=== PATIENT | female | born 1995 | race Caucasian/White ===

== ENCOUNTER 2021-01-14 08:19 | Inpatient (IN) ==
[2021-01-14] MEDS ORDERED: MEPERIDINE 50 MG/1 ML VIAL IV PRN (08:33)
[2021-01-14] MEDS ORDERED: BUTORPHANOL 2 MG/ML VIAL IV PRN (08:33)
[2021-01-14] MEDS ORDERED: ONDANSETRON 4 MG/2 ML VIAL IV PRN ×2 (08:33→17:56)
[2021-01-14] MEDS ORDERED: FAMOTIDINE 20 MG/2 ML VIAL IV ONE (08:37)
[2021-01-14] MEDS ORDERED: hydrOXYzine HCL 25 MG/1 ML VIAL IM PRN (08:37)
[2021-01-14] MEDS ORDERED: diphenhydrAMINE 50 MG/1 ML VIAL IV PRN ×2 (08:37)
[2021-01-14] MEDS ORDERED: NALOXONE 0.4 MG/ML VIAL IV PRN (08:37)
[2021-01-14] MEDS ORDERED: CITRIC ACID/SODIUM CITRATE 30 ML UDCUP PO ONE (08:37)
[2021-01-14] MEDS ORDERED: LACTATED RINGERS 1,000 ML IV ONE (08:37)
[2021-01-14] MEDS ORDERED: PROMETHAZINE 25 MG/1 ML VIAL IM ONE (08:37)
[2021-01-14] MEDS ORDERED: ePHEDrine 50 MG/ML VIAL IV PRN (08:37)
[2021-01-14] MEDS: LACTATED RINGERS 1,000 ML IV SCH ×2 (08:40→10:14)
[2021-01-14 08:58] LABS: Basophils % 0.3 % (0.0-0.8); Eosinophils # 0.1 10*3/uL (0.0-0.87); Eosinophils % 0.7 % (0.00-10.9); Hematocrit 35.4 VOL% (35.7-47.0); Hemoglobin 11.3 GM/DL (12.0-16.0); Immature Granulocytes % 0.8 %; Immature Granulocytes Absolute 0.08 #; Lymphocytes # 2.4 10*3/uL (1.4-4.0); Lymphocytes % 22.9 % (21.3-54.2); Mean Corpuscular HGB Conc 31.9 GM/DL (32-36); Mean Corpuscular Volume 84.9 FL (87-102); Monocytes % 6.8 % (1.7-12.7); Neutrophils % 68.5 % (38.7-73.9); Platelet Count 334 T/CUMM (130-400); Red Blood Count 4.17 MC/CUMM (3.8-5.5); Red Cell Distribution Width 13.3 % (9.3-17.3); White Blood Count 10.5 T/CUMM (4-12)
[2021-01-14] MEDS ORDERED: fentaNYL 2 MCG/ROPIV 0.2% EPID 100 ML EPIDURAL SCH (09:00)
[2021-01-14 09:36] LABS: Alanine Aminotransferase 51 U/L (13-56); Albumin 3.1 G/DL (3.4-5.0); Alkaline Phosphatase 185 U/L (45-117); Aspartate Amino Transferase 33 U/L (0-37); Bilirubin,Total < 0.39 MG/DL (0.20-1.00); Blood Urea Nitrogen 5 MG/DL (7-18); Calcium 9.1 MG/DL (8.5-10.1); Carbon Dioxide 23 MMOL/L (21-32); Estimated Glom Filtration Rate 138 ML/MIN; Glucose 77 MG/DL (74-106); Potassium 3.6 MMOL/L (3.5-5.1); Sodium 136 MMOL/L (136-145)
[2021-01-14 10:19] LABS: Barbiturates Screen,Urine Negative (Negative); Benzodiazepines Screen,Urine Negative (Negative); Cannabinoid Screen,Urine Negative (Negative); Opiate Screen,Urine Negative (Negative); Phencyclidine Screen,Urine Negative (Negative)
[2021-01-14 10:57] LABS: Bilirubin,Urine Negative (Negative); Blood, Urine Negative (Negative); Glucose,Urine (UA) Negative (Negative); Ketones,Urine Negative (Negative); Mucus,Urine Occasional /LPF (Occasional); Nitrite,Urine Negative (Negative); Protein,Urine Negative; RBC,Urine <1 /HPF (0-4); Squamous Epithelial Cell,Urine Occasional /HPF (0-10); Urine Appearance CLEAR (Clear); Urine Color Yellow (Yellow); Urine Specific Gravity 1.005 (1.001-1.035); Urine Urobilinogen < 2.0 EU/DL (0.2-1.0)
[2021-01-14] MEDS: OXYTOCIN/LR 20 UNIT/1,000 ML BAG IV SCH ×2 (12:29→16:50)
[2021-01-14] MEDS ORDERED: miSOPROStoL 200 MCG TABLET ONE (12:38)
[2021-01-14] MEDS ORDERED: METHYLERGONOVINE 0.2 MG/1 ML AMP ONE (12:39)
[2021-01-14] MEDS ORDERED: OXYTOCIN 10 UNIT/ML VIAL ONE (12:40)
[2021-01-14 13:41] LABS: Cord Venous Blood HCO3 22.2 MMOL/L; Cord Venous Blood PCO2 37.7 MMHG; Cord Venous Blood PO2 29.4
[2021-01-14] MEDS ORDERED: BENZOCAINE 20%/MENTHOL 0.5% SPRAY 56 GM CAN TOP PRN (17:56)
[2021-01-14] MEDS ORDERED: WITCH HAZEL PADS 100/JAR TOP PRN (17:56)
[2021-01-14] MEDS ORDERED: MEASLES/MUMPS/RUBELLA VACCINE 0.5 ML VIAL SUBCUT ONE (17:56)
[2021-01-14] MEDS ORDERED: LANOLIN 50% CREAM 0.3 OZ TUBE TOP PRN (17:56)
[2021-01-14] MEDS ORDERED: RHO(D) IMMUNE GLOBULIN 300 MCG SYRINGE IM ONE (17:56)
[2021-01-14] MEDS ORDERED: ACETAMINOPHEN 325 MG TABLET PO PRN (17:56)
[2021-01-14] MEDS ORDERED: DIPH/TET/ACEL PERT BOOSTER VACCINE 0.5 ML VIAL IM ONE (17:56)
[2021-01-14] MEDS ORDERED: oxyCODONE/ACETAMINOPHEN 5-325 MG TABLET PO PRN ×2 (17:56)
[2021-01-14] MEDS ORDERED: BISACODYL 10 MG SUPP RECTAL PRN (17:56)
[2021-01-14] MEDS ORDERED: HYDROCORTISONE 2.5% RECTAL CREAM 30 GM TUBE TOP PRN (17:56)
[2021-01-14] MEDS: IBUPROFEN 800 MG TABLET PO PRN (18:11)
[2021-01-14] MEDS: DOCUSATE SODIUM 100 MG CAPSULE PO SCH (22:12)
[2021-01-14] MEDS: buPROPion XL 150 MG TABLET PO SCH (22:13)
[2021-01-15] MEDS: IBUPROFEN 800 MG TABLET PO PRN (01:26)
[2021-01-15 05:18] LABS: Basophils % 0.3 % (0.0-0.8); Eosinophils # 0.1 10*3/uL (0.0-0.87); Eosinophils % 0.5 % (0.00-10.9); Hematocrit 31.1 VOL% (35.7-47.0); Immature Granulocytes % 0.6 %; Immature Granulocytes Absolute 0.07 #; Lymphocytes # 2.6 10*3/uL (1.4-4.0); Lymphocytes % 22.5 % (21.3-54.2); Mean Corpuscular HGB Conc 32.2 GM/DL (32-36); Mean Platelet Volume 9.9 FL (9.6-12.0); Monocytes % 7.6 % (1.7-12.7); Neutrophils % 68.5 % (38.7-73.9); Platelet Count 286 T/CUMM (130-400); Red Blood Count 3.66 MC/CUMM (3.8-5.5); Red Cell Distribution Width 13.2 % (9.3-17.3); White Blood Count 11.4 T/CUMM (4-12)
[2021-01-15] MEDS: DOCUSATE SODIUM 100 MG CAPSULE PO SCH ×3 (08:21→21:10)
[2021-01-15] MEDS: buPROPion XL 150 MG TABLET PO SCH (08:22)
[2021-01-16] MEDS: IBUPROFEN 800 MG TABLET PO PRN (00:49)
[2021-01-16] MEDS: DOCUSATE SODIUM 100 MG CAPSULE PO SCH (09:14)
[2021-01-16] MEDS: buPROPion XL 150 MG TABLET PO SCH (09:14)
[2021-01-16 12:28] VITALS: BP 143/75
== END 2021-01-16 15:00 | disposition home or self-care (01) | DRG 560 ==
LOC: N.LDOUT 08:19 → N.LD 08:20 → N.OB 17:55
PROVIDERS: ADMIT Obstetrics & Gynecology; ATTEND Specialist

== ENCOUNTER 2022-01-13 22:59 | Inpatient (IN) ==
[2022-01-13 23:38] LABS: Bacteria,Urine Occasional /HPF (Few); Mucus,Urine Occasional /LPF (Occasional); RBC,Urine 2 /HPF (0-4); Squamous Epithelial Cell,Urine Few /HPF (0-10); Urine Appearance Clear (Clear); Urine Color Yellow (Yellow)
[2022-01-13 23:39] LABS: Bilirubin,Urine Negative (Negative); Blood, Urine Trace mg/dL (Negative); Glucose,Urine (UA) Negative (Negative); Ketones,Urine Negative (Negative); Nitrite,Urine Negative (Negative); Protein,Urine Negative (Negative)
[2022-01-14] MEDS ORDERED: miSOPROStoL 200 MCG TABLET RECTAL PRN (00:48)
[2022-01-14] MEDS ORDERED: MEPERIDINE 50 MG/1 ML VIAL IV PRN (00:48)
[2022-01-14] MEDS ORDERED: BUTORPHANOL 1 MG/ML VIAL IV PRN (00:48)
[2022-01-14] MEDS ORDERED: FAMOTIDINE 20 MG TABLET PO PRN (00:48)
[2022-01-14] MEDS ORDERED: ACETAMINOPHEN 500 MG TABLET PO PRN (00:48)
[2022-01-14] MEDS ORDERED: METHYLERGONOVINE 0.2 MG/1 ML AMP IM PRN (00:48)
[2022-01-14] MEDS ORDERED: OXYTOCIN/LR 20 UNIT/1,000 ML BAG IV ONE ×3 (00:48→09:37)
[2022-01-14] MEDS ORDERED: LACTATED RINGERS 500 ML IV PRN (00:48)
[2022-01-14] MEDS ORDERED: ONDANSETRON 4 MG/2 ML VIAL IV PRN (00:48)
[2022-01-14] MEDS ORDERED: BUTORPHANOL 2 MG/ML VIAL IV PRN (00:48)
[2022-01-14] MEDS ORDERED: TRANEXAMIC ACID 1,000 MG in SODIUM CHLORIDE 0.9% 100 ML IV PRN (00:48)
[2022-01-14] MEDS ORDERED: CARBOPROST TROMETHAMINE 250 MCG/ML AMP IM PRN (00:48)
[2022-01-14] MEDS ORDERED: FAMOTIDINE 20 MG/2 ML VIAL IV PRN (00:48)
[2022-01-14] MEDS ORDERED: ePHEDrine 50 MG/ML VIAL IV PRN (00:50)
[2022-01-14] MEDS ORDERED: ONDANSETRON 4 MG/2 ML VIAL IV ONE (00:50)
[2022-01-14] MEDS ORDERED: CITRIC ACID/SODIUM CITRATE 30 ML UDCUP PO ONE (00:50)
[2022-01-14] MEDS ORDERED: hydrOXYzine HCL 25 MG/1 ML VIAL IM PRN (00:50)
[2022-01-14] MEDS ORDERED: diphenhydrAMINE 50 MG/1 ML VIAL IV PRN ×2 (00:50)
[2022-01-14] MEDS ORDERED: FAMOTIDINE 20 MG/2 ML VIAL IV ONE (00:50)
[2022-01-14] MEDS ORDERED: NALOXONE 0.4 MG/ML VIAL IV PRN (00:50)
[2022-01-14] MEDS ORDERED: PROMETHAZINE 25 MG/1 ML VIAL IM ONE (00:50)
[2022-01-14] MEDS ORDERED: LACTATED RINGERS 1,000 ML IV ONE (00:50)
[2022-01-14] MEDS ORDERED: LACTATED RINGERS 1,000 ML IV SCH (01:00)
[2022-01-14] MEDS ORDERED: fentaNYL 2 MCG/ROPIV 0.2% EPID 100 ML EPIDURAL SCH (01:00)
[2022-01-14] MEDS ORDERED: AMPICILLIN INJ 2,000 MG in SODIUM CHLORIDE 0.9% 100 ML IV ONE (01:16)
[2022-01-14 01:21] LABS: Basophils % 0.3 % (0.0-0.8); Eosinophils % 0.3 % (0.00-10.9); Hematocrit 33.3 VOL% (35.7-47.0); Immature Granulocytes % 0.6 %; Immature Granulocytes Absolute 0.07 #; Lymphocytes # 1.9 10*3/uL (1.4-4.0); Lymphocytes % 17.8 % (21.3-54.2); Mean Corpuscular Volume 78.5 FL (87-102); Mean Platelet Volume 10.3 FL (9.6-12.0); Monocytes # 0.6 10*3/uL (0.11-0.8); Monocytes % 5.4 % (1.7-12.7); Neutrophils % 75.6 % (38.7-73.9); Platelet Count 290 T/CUMM (130-400); Red Blood Count 4.24 MC/CUMM (3.8-5.5); Red Cell Distribution Width 13.6 % (9.3-17.3); White Blood Count 10.8 T/CUMM (4-12)
[2022-01-14] MEDS ORDERED: ePHEDrine 50 MG/ML VIAL ONE (01:35)
[2022-01-14] MEDS ORDERED: CITRIC ACID/SODIUM CITRATE 30 ML UDCUP ONE (01:35)
[2022-01-14 01:39] LABS: Albumin 2.9 G/DL (3.4-5.0); Bilirubin,Total 0.4 MG/DL (0.20-1.00); Osmolality,Calculated 272.7 MOS/KG (273-304); Potassium 3.7 MMOL/L (3.5-5.1); Total Protein 6.9 G/DL (6.4-8.2)
[2022-01-14 02:08] LABS: HIV Antigen/Antibody Result Nonreactive (Nonreactive)
[2022-01-14 02:50] LABS: Hepatitis B Surface Ag Quant < 0.10 Index; Hepatitis B Surface Ag Result Non-Reactive (NonReactive)
[2022-01-14] MEDS ORDERED: AMPICILLIN INJ 1,000 MG in SODIUM CHLORIDE 0.9% 100 ML IV SCH (05:30)
[2022-01-14] MEDS ORDERED: TRANEXAMIC ACID 1,000 MG/10 ML VIAL ONE (06:43)
[2022-01-14] MEDS ORDERED: miSOPROStoL 200 MCG TABLET ONE (06:43)
[2022-01-14] MEDS ORDERED: SODIUM CHLORIDE 0.9% 0 ML IV ONE (06:43)
[2022-01-14] MEDS ORDERED: METHYLERGONOVINE 0.2 MG/1 ML AMP ONE (06:43)
[2022-01-14] MEDS ORDERED: CARBOPROST TROMETHAMINE 250 MCG/ML AMP IM ONE (06:43)
[2022-01-14] MEDS ORDERED: OXYTOCIN/LR 30 UNIT/1,000 ML BAG IV ONE (06:47)
[2022-01-14 07:25] LABS: Cord Venous Blood HCO3 23.1 MMOL/L; Cord Venous Blood PCO2 33.1 MMHG; Cord Venous Blood PO2 32.4
[2022-01-14] MEDS ORDERED: DIPH/TET/ACEL PERT BOOSTER VACCINE 0.5 ML VIAL IM ONE (09:37)
[2022-01-14] MEDS ORDERED: LANOLIN 50% CREAM 0.3 OZ TUBE TOP PRN (09:37)
[2022-01-14] MEDS ORDERED: oxyCODONE/ACETAMINOPHEN 5-325 MG TABLET PO PRN ×2 (09:37)
[2022-01-14] MEDS ORDERED: MEASLES/MUMPS/RUBELLA VACCINE 0.5 ML VIAL SUBCUT ONE (09:37)
[2022-01-14] MEDS ORDERED: RHO(D) IMMUNE GLOBULIN 300 MCG SYRINGE IM ONE (09:37)
[2022-01-14] MEDS ORDERED: WITCH HAZEL PADS 100/JAR TOP PRN (09:37)
[2022-01-14] MEDS ORDERED: BISACODYL 10 MG SUPP RECTAL PRN (09:37)
[2022-01-14] MEDS ORDERED: BENZOCAINE 20%/MENTHOL 0.5% SPRAY 56 GM CAN TOP PRN (09:37)
[2022-01-14] MEDS ORDERED: HYDROCORTISONE 2.5% RECTAL CREAM 30 GM TUBE TOP PRN (09:37)
[2022-01-14] MEDS: DOCUSATE SODIUM 100 MG CAPSULE PO SCH ×2 (09:58→21:02)
[2022-01-14] MEDS: IBUPROFEN 800 MG TABLET PO PRN ×2 (09:59→21:02)
[2022-01-14] MEDS ORDERED: ACETAMINOPHEN/CODEINE 300-30 MG TABLET PO PRN ×2 (20:57)
[2022-01-15 04:40] LABS: Basophils % 0.3 % (0.0-0.8); Eosinophils # 0.1 10*3/uL (0.0-0.87); Eosinophils % 0.7 % (0.00-10.9); Hematocrit 31.7 VOL% (35.7-47.0); Hemoglobin 10.4 GM/DL (12.0-16.0); Immature Granulocytes % 0.6 %; Immature Granulocytes Absolute 0.07 #; Lymphocytes # 2.7 10*3/uL (1.4-4.0); Lymphocytes % 24.7 % (21.3-54.2); Mean Corpuscular HGB Conc 32.8 GM/DL (32-36); Mean Corpuscular Volume 79.1 FL (87-102); Mean Platelet Volume 10.4 FL (9.6-12.0); Monocytes # 0.8 10*3/uL (0.11-0.8); Monocytes % 7.1 % (1.7-12.7); Neutrophils % 66.6 % (38.7-73.9); Platelet Count 245 T/CUMM (130-400); Red Blood Count 4.01 MC/CUMM (3.8-5.5); Red Cell Distribution Width 13.7 % (9.3-17.3); White Blood Count 11.1 T/CUMM (4-12)
[2022-01-15 05:24] LABS: Rubella Antibody IgG Result Reactive (NonReactive)
[2022-01-15] MEDS: DOCUSATE SODIUM 100 MG CAPSULE PO SCH ×2 (09:15→21:00)
[2022-01-15] MEDS: ACETAMINOPHEN 325 MG TABLET PO PRN (13:27)
[2022-01-15] MEDS: IBUPROFEN 800 MG TABLET PO PRN (20:04)
[2022-01-16] MEDS: ACETAMINOPHEN 325 MG TABLET PO PRN (04:14)
[2022-01-16 07:27] VITALS: BP 111/55
[2022-01-16] MEDS: DOCUSATE SODIUM 100 MG CAPSULE PO SCH (11:20)
== END 2022-01-16 14:46 | disposition home or self-care (01) | DRG 560 ==
LOC: N.LD 22:59 → N.OBOUT 22:59 → N.LD 23:01 → N.OB 01-14 09:41
PROVIDERS: ADMIT Obstetrics & Gynecology; ATTEND Obstetrics & Gynecology